=== PATIENT | female | born 1990 | race Caucasian/White ===

== ENCOUNTER → 2017-04-05 | Outpatient (CLI) | payer BC | END | disposition home or self-care (01) | LOC: C.PAPS 10:30 | PROVIDERS: ATTEND Obstetrics & Gynecology | DX: Z01.419 Encounter for gynecological examination (general) (routine) without abnormal findings (principal) ==

== ENCOUNTER → 2017-10-19 | Outpatient (CLI) | payer BC ==
[2017-10-19 11:27] LABS: URINE APPEARANCE CLEAR (CLEAR); URINE BILIRUBIN NEG (NEG); URINE COLOR YELLOW; URINE NITRITE NEG (NEG); URINE PH 8.5 (4.5-7.5); URINE SPECIFIC GRAVITY 1.004 (1.000-1.030); UROBILINOGEN NEG (NEG)
[2017-10-19 11:29] LABS: MANUAL MICROSCOPIC REQUIRED? NO; REVIEW REQ? NO
[2017-10-20 14:06] LABS: CHLAMYDIA TRACH RNA*** NOT DETECTED (NOT DETECTED); GC (NEIS GONORRHOEAE)RNA** NOT DETECTED (NOT DETECTED)
== END | disposition home or self-care (01) ==
LOC: C.LABSPEC 11:07
PROVIDERS: ATTEND Obstetrics & Gynecology
DX: Z34.90 Encounter for supervision of normal pregnancy, unspecified, unspecified trimester (principal)

== ENCOUNTER → 2017-10-19 | Outpatient (CLI) | payer BC ==
[2017-10-19 12:25] LABS: BASO % 0.7 %; BASO ABS # 0.06 K/uL (0-0.2); COMPLETE YES; EOS % 1.7 %; HEMATOCRIT 38.6 % (37-47); IG% 0.3 %; LYMPH % 27.6 %; LYMPH ABS # 2.38 K/uL (1.2-3.4); MEAN CELL VOLUME 85.6 fL (80-100); MEAN CORPUSCULAR HGB CONC 33.9 g/dl (32-36); MEAN PLATELET VOLUME 11.3 fL (7.4-10.4); MONO % 7.9 %; NEUT % 61.8 %; PLATELET COUNT 222 K/uL (130-400); RED BLOOD COUNT 4.51 M/uL (4.2-5.4); WHITE BLOOD COUNT 8.61 K/uL (4.8-10.8)
== END | disposition home or self-care (01) ==
LOC: C.LAB1850 10:05
PROVIDERS: ATTEND Obstetrics & Gynecology
DX: Z34.90 Encounter for supervision of normal pregnancy, unspecified, unspecified trimester (principal)

== ENCOUNTER → 2017-12-13 | Outpatient (CLI) | payer BC | END | disposition home or self-care (01) | LOC: C.LAB1850 09:25 | PROVIDERS: ATTEND Obstetrics & Gynecology | DX: O09.292 Supervision of pregnancy with other poor reproductive or obstetric history, second trimester (principal); Z3A.00 Weeks of gestation of pregnancy not specified ==

== ENCOUNTER → 2018-03-04 | Outpatient (CLI) | payer BC ==
[2018-03-04 10:06] LABS: HEMATOCRIT 35.1 % (37-47); HEMOGLOBIN 11.8 g/dL (12.0-16.0)
== END | disposition home or self-care (01) ==
LOC: C.LAB1850 08:45
PROVIDERS: ATTEND Obstetrics & Gynecology
DX: O09.293 Supervision of pregnancy with other poor reproductive or obstetric history, third trimester (principal); Z3A.00 Weeks of gestation of pregnancy not specified

== ENCOUNTER 2018-06-08 07:41 | Inpatient (IN) | payer BC ==
[~2018-06-08] VITALS: Ht 154.9 cm; Wt 83.0 kg
[~2018-06-08 07:41] MED LIST: CLR10 PO; DOCO200C2; PRENTAB26 PO
[2018-06-08] MEDS ORDERED: LACTATED RINGER'S 1000ML 500 ML IV PRN ×2 (07:51→12:39)
[2018-06-08] MEDS ORDERED: LACTATED RINGER'S 1000ML 1,000 ML IV PRN (07:51)
[2018-06-08] MEDS ORDERED: OXYTOCIN 30 UNITS/500ML NSS IV PRN (08:00)
[2018-06-08 08:22] LABS: HEMATOCRIT 39.7 % (37-47); HEMOGLOBIN 13.6 g/dL (12.0-16.0); MEAN CELL VOLUME 85.4 fL (80-100); MEAN CORPUSCULAR HEMOGLOBIN 29.2 pg (25-34); MEAN CORPUSCULAR HGB CONC 34.3 g/dl (32-36); MEAN PLATELET VOLUME 11.6 fL (7.4-10.4); PLATELET COUNT 218 K/uL (130-400); RED CELL DISTRIBUTION WIDTH CV 14.9 % (11.5-14.5); RED CELL DISTRIBUTION WIDTH SD 45.9 fL (36.4-46.3); WHITE BLOOD COUNT 13.68 K/uL (4.8-10.8)
[2018-06-08] MEDS: LACTATED RINGER'S 1000ML 1,000 ML IV SCH ×2 (08:44→18:12)
[2018-06-08] MEDS ORDERED: EpHEDrine SULFATE INJ 50 MG/ML AMP ONE (11:53)
[2018-06-08] MEDS ORDERED: BUPIVACAINE 0.25% 30 ML VIAL ONE (11:53)
[2018-06-08] MEDS ORDERED: FENTANYL CITRATE INJ 50 MCG/1 ML 2 ML VIAL ONE (11:53)
[2018-06-08] MEDS ORDERED: FENTANYL 2MCG/ML ROPIV 1.25MG/ML 100ML BAG ONE (11:54)
[2018-06-08] MEDS ORDERED: NALOXONE HCL INJ 1 MG in SODIUM CHLORIDE 0.9% 1000ML 1,000 ML IV PRN (12:39)
[2018-06-08] MEDS ORDERED: NALBUPHINE HCL INJ 10 MG/ML 10ML VIAL IV PRN (12:45)
[2018-06-08] MEDS ORDERED: EpHEDrine SULFATE INJ 50 MG/ML AMP IV PRN (12:45)
[2018-06-08] MEDS ORDERED: NALOXONE HCL INJ 0.4 MG/1 ML VIAL/CARP IV PRN (12:45)
[2018-06-08] MEDS ORDERED: DiphenhydrAMINE HCL 50 MG/ML VIAL IV PRN (12:45)
[2018-06-08] MEDS ORDERED: ONDANSETRON INJ 2 MG/ML 2 ML VIAL IV PRN (12:45)
[2018-06-08 14:28] VITALS: Ht 154.9 cm; Wt 83.0 kg
[2018-06-08] MEDS: FENTANYL 2MCG/ML ROPIV 1.25MG/ML 100ML BAG EPI PRN ×2 (19:03→19:40)
[2018-06-09] VITALS (16 sets, daily range): BP systolic 104–120; BP diastolic 66–79; PULSE 83–99; TEMP 36.7–37.3; O2SAT 95–100
[2018-06-09] MEDS: FENTANYL 2MCG/ML ROPIV 1.25MG/ML 100ML BAG EPI PRN (01:29)
[2018-06-09] MEDS ORDERED: LACTATED RINGER'S 1000ML 1,000 ML IV SCH ×2 (03:59→05:09)
[2018-06-09] MEDS ORDERED: CEFAZOLIN IV 2,000 MG in SYRINGE 0 ML IV SCH (04:00)
[2018-06-09] MEDS ORDERED: CITRIC ACID/SODIUM CITRATE 15 ML UDC PO ONE (04:00)
[2018-06-09] MEDS ORDERED: LIDOCAINE/EPINEPHRINE 2% 1:200,000 20 ML SDV ONE (04:13)
[2018-06-09] MEDS ORDERED: SODIUM BICARBONATE 8.4% INJ 50 MEQ/50 ML VIAL ONE (04:15)
[2018-06-09] MEDS ORDERED: OXYTOCIN INJ 10 UNITS/ML VIAL ONE (04:15)
[2018-06-09] MEDS ORDERED: CARBOPROST TROMETHAMINE 250 MCG/ML AMP ONE (04:22)
[2018-06-09] MEDS ORDERED: MoRPHine SULFATE PF 1 MG/ML 10 ML AMP/VIAL ONE (04:35)
[2018-06-09] MEDS ORDERED: PHENYLEPHRINE 100MCG/ML 5ML SYR ONE (04:37)
--- NOTE | 2018-06-09 05:07 | [facility] Post Operative Brief Note ---
Immediate Operative Summary Operative Date Jun 09, 2018. Pre-Operative Diagnosis 1) Post Dates 2) intolerance to labor Post-Operative Diagnosis same Procedure(s) Performed Primary LCT C/S Surgeon Espinoza Testing Machine Operator Surgeon(s) Heidi Estimated Blood Loss 800 Findings See Below viable female Apgars 7/9, gasses pending, nml appearing tunes and ovaries Fluids (cc crystalloids) 1000 Specimens 1) Placenta 2) Cord gasses Drains Beckman to gravity Anesthesia Type L&D Only EPID Exist Complication(s) none Disposition Accompanied Pt To Recover: yes Disposition: L&D
[2018-06-09] MEDS ORDERED: BENZOCAINE 20% AER SPR 82.5 GM CAN EXT PRN (05:15)
[2018-06-09] MEDS ORDERED: SUPERCREAM 0.870 % 15GM JAR EXT PRN (05:15)
[2018-06-09] MEDS ORDERED: DIPHTHERIA/TETANUS/PERTUSSIS 0.5 ML SYR/VIAL IM. ONE (05:15)
[2018-06-09] MEDS ORDERED: LANOLIN OINT EXT PRN (05:15)
[2018-06-09] MEDS ORDERED: HYDROCORTISONE ACETATE 25 MG SUPP PR PRN (05:15)
[2018-06-09] MEDS ORDERED: KETOROLAC TROMETHAMINE 30 MG/ML VIAL ONE (05:26)
[2018-06-09] MEDS ORDERED: MEPERIDINE HCL 25 MG/ML CARP IV PRN (05:30)
[2018-06-09] MEDS ORDERED: NO NARCOTICS OR SEDATIVES SCH (05:30)
[2018-06-09] MEDS ORDERED: MoRPHine SULFATE 2 MG/ML CARP IV PRN (05:30)
[2018-06-09] MEDS ORDERED: MoRPHine SULFATE PF 1 MG/ML 10 ML AMP/VIAL EPI PRN (05:30)
[2018-06-09] MEDS ORDERED: CONTINUE MEDICATION ONE (05:30)
--- NOTE | 2018-06-09 05:52 | Anesthesiology Progress Note ---
Anesthesia Post Op Note Date & Time Jun 09, 2018 at 05:52 Vital Signs Pain Intensity: 3.0 Notes Mental Status: alert / awake / arousable, participated in evaluation Pt Amnestic to Procedure: Yes Nausea / Vomiting: adequately controlled Pain: adequately controlled Airway Patency, RR, SpO2: stable & adequate BP & HR: stable & adequate Hydration State: stable & adequate Neuraxial Anesthesia: was administered, sensory block is resolving Anesthetic Complications: no major complications apparent
[2018-06-09] MEDS ORDERED: CEFAZOLIN IV 2,000 MG in DEXTROSE 5% 50ML 50 ML IV SCH (06:00)
[2018-06-09] MEDS: OXYTOCIN INJ 20 UNITS in LACTATED RINGER'S 1000ML 1,000 ML IV SCH ×2 (07:11→15:42)
--- NOTE | 2018-06-09 07:15 | OPERATIVE REPORT ---
DATE OF OPERATION: 06/09/2018 PREOPERATIVE DIAGNOSES: 1. Postdates . 2. intolerance for labor. POSTOPERATIVE DIAGNOSES: 1. Postdates . 2. intolerance for labor. PROCEDURE PERFORMED: Primary low cervical transverse section. SURGEON: Sarthak WAY MD WATER TAXI FERRY OPERATOR: Mago Gordon MD ANESTHESIA: Epidural. FINDINGS: Viable female with Apgars of 7 and 8. Meconium noted with double nuchal cord. Cord gases pending. Normal-appearing tubes and ovaries bilaterally. PROCEDURE IN DETAIL: The patient was taken to the operating room, and after epidural anesthesia, was placed in supine position and draped and prepped in usual fashion. Pfannenstiel type incision was made. Underlying subcutaneous tissue was dissected down to the ventral abdominal fascia, which was nicked and opened in a horizontal manner. Preperitoneal fascia was dissected away until the peritoneal cavity was entered and opened in a vertical manner. Bladder blade was placed. Peritoneum overlying the uterus was elevated, opened in a semi-lunar fashion, the inferior margin of which was taken down creating the bladder flap. The uterus was entered sharply and extended in a semilunar fashion manually. Viable female was delivered with meconium noted. Nuchal cord x2 reduced. Baby was delivered. Cord was clamped and cut. The baby was passed off to pediatrics who was in attendance for the delivery. Cord gases and cord blood samples obtained. Placenta was delivered spontaneously and sent for pathological evaluation. The uterus was exteriorized. The uterine cavity was wiped clean of any residual blood tissue and/or clot. The uterine incision was closed with 2 layers of 4-0 Vicryl, the first a running locking stitch, the second an imbricating stitch. Hemabate 250 mcg was injected directly into the myometrium for hemostasis. The uterus was returned to the pelvic cavity. The pericolic gutters were cleared bilaterally of any blood tissue and/or clot. The pelvis was thoroughly irrigated with 1000 mL of warm saline. Inspection of the incision showed hemostasis. Sponge and needle count was correct. Rectus muscle was plicated in the midline with a running 2-0 Vicryl stitch. The fascia was closed laterally with a running 0 Vicryl suture. The subcutaneous tissue was irrigated with warm saline and the skin incision was closed with a 4-0 Monocryl subcuticular stitch. Sterile dressing was applied. The patient was taken to the recovery room in satisfactory condition. I attest to the content of the Intraoperative Record and any orders documented therein. Any exception s are noted below.
[2018-06-09] MEDS: PRENATAL VITAMIN TAB PO SCH (08:00)
[2018-06-09] MEDS: FERROUS SULFATE 325 MG TAB PO SCH (08:00)
[2018-06-09] MEDS: KETOROLAC TROMETHAMINE 30 MG/ML VIAL IV. PRN ×2 (12:09→19:38)
[2018-06-09] MEDS ORDERED: LACTATED RINGER'S 1000ML 250 ML IV ONE (14:45)
[2018-06-09] MEDS ORDERED: NURSING VERBAL MED ORDER ONE ×2 (14:45→16:00)
[2018-06-09 14:47] LABS: HEMATOCRIT 35.5 % (37-47); HEMOGLOBIN 12.1 g/dL (12.0-16.0)
[2018-06-09] MEDS ORDERED: DC INTRASPINAL MORPHINE SCH (23:00)
[2018-06-09] MEDS ORDERED: DiphenhydrAMINE HCL 50 MG/ML VIAL IV PRN (23:00)
[2018-06-09] MEDS ORDERED: ONDANSETRON INJ 2 MG/ML 2 ML VIAL IV PRN (23:01)
[2018-06-09] MEDS ORDERED: OXYCODONE/ACETAMINOPHEN 5-325 TAB PO PRN ×2 (23:01)
[2018-06-09] MEDS ORDERED: KETOROLAC TROMETHAMINE 30 MG/ML VIAL IV. PRN (23:01)
[2018-06-09] MEDS ORDERED: OXYTOCIN INJ 20 UNITS in LACTATED RINGER'S 1000ML 1,000 ML IV SCH (23:30)
[2018-06-10 05:00] VITALS: BP 116/78; PULSE 89; TEMP 37; O2SAT 95
--- NOTE | 2018-06-10 07:20 | Progress Note ---
Subjective Jun 10, 2018. Subjective conversation w/ patient, conversation w/ family, physical exam, chart review, lab review Ambulation: limited ambulation Voiding: long catheter in place Passing Gas: Yes Diet Tolerance: Regular Diet Lochia: Small Feeding Type: Breast Feeding Problem List Medical Problems: (1) Headache in (2) Post term Review of Systems Constitutional: No fever, No chills Respiratory: No cough, No shortness of breath Cardiac: No chest pain Abdomen: No nausea, No vomiting Objective Vital Signs Date Time Temp Pulse Resp B/P (MAP) Pulse Ox O2 Delivery O2 Flow Rate FiO2 06/10/18 05:00 37.0 89 16 116/78 (91) 95 Room Air 06/09/18 23:20 36.9 83 16 104/70 (81) 95 Room Air 06/09/18 23:20 18 95 06/09/18 23:20 95 Room Air 06/09/18 22:15 18 98 06/09/18 21:10 18 97 06/09/18 21:10 37.1 96 18 110/71 (84) 97 Room Air 06/09/18 21:10 97 Room Air 06/09/18 20:15 18 99 06/09/18 19:15 18 99 06/09/18 17:00 18 100 06/09/18 15:47 36.9 93 16 119/79 (92) 100 Room Air 06/09/18 15:45 16 100 06/09/18 14:30 18 100 06/09/18 13:30 18 100 06/09/18 12:30 18 99 06/09/18 11:41 37.3 90 18 106/66 (79) 95 Room Air 06/09/18 11:41 18 95 06/09/18 10:45 18 96 06/09/18 09:45 37.1 99 16 120/79 (93) 100 Room Air 06/09/18 09:45 16 100 06/09/18 08:45 16 95 06/09/18 08:45 36.7 90 16 111/72 (85) 95 Room Air 06/09/18 07:45 16 95 06/09/18 07:45 95 Room Air 06/09/18 07:45 37.3 94 16 110/72 (85) 95 Room Air 06/09/18 07:45 95 Room Air Physical Exam General Appearance: WELL-APPEARING, WD/WN Respiratory/Chest: lungs clear, normal breath sounds, no respiratory distress, no accessory muscle use Cardiovascular: regular rate, rhythm, no gallop, no murmur Abdomen: normal bowel sounds Incision Description: Clean, Dry & Intact Laboratory Results Last 24 Hours Test 06/09/18 14:38 06/10/18 06:00 Hemoglobin 12.1 g/dL Hematocrit 35.5 % Medications Current Inpatient Medications Medications (Trade) Dose Ordered Sig/Torey Route Start Time Stop Time Status Last Admin Dose Admin Lactated Ringer's 1,000 ml @ 125 mls/hr Q8H IV 06/08/18 07:51 06/10/18 07:50 06/08/18 18:12 125 MLS/HR Oxytocin (Pitocin IV) 30 units UD PRN IV 06/08/18 08:00 07/08/18 07:59 06/08/18 08:56 30 UNITS Lactated Ringer's 1,000 ml @ 1,000 mls/hr Q1H IV 06/09/18 03:59 07/09/18 03:58 Ketorolac Tromethamine (Toradol Inj) 30 mg Q6H PRN IV. 06/09/18 23:01 06/14/18 23:00 06/10/18 02:08 30 MG Oxycodone/ Acetaminophen (Percocet 5-325mg Tab) 1 tab Q4H PRN PO 06/09/18 23:01 06/23/18 23:00 Oxycodone/ Acetaminophen (Percocet 5-325mg Tab) 2 tab Q4H PRN PO 06/09/18 23:01 06/23/18 23:00 Ibuprofen (Motrin Tab) 600 mg Q4H PRN PO 06/09/18 05:15 07/09/18 05:14 Ondansetron HCl (Zofran Inj) 4 mg Q4H PRN IV 06/09/18 23:01 07/09/18 23:00 Prenat Multivit/ [place]/Iron/Folic Ac ( Vitamin Tab) 1 tab DAILY PO 06/09/18 08:00 07/09/18 07:59 Magnesium Hydroxide (Milk Of Magnesia Susp) 30 ml HS PO 06/10/18 22:00 07/10/18 21:59 Ferrous Sulfate (Feosol Tab) 325 mg DAILY PO 06/09/18 08:00 07/09/18 07:59 Cocaine HCl (Supercream 0.870% Cr) BID PRN EXT 06/09/18 05:15 06/23/18 05:14 Lanolin (Lanolin Oint) PRN PRN EXT 06/09/18 05:15 07/09/18 05:14 Hydrocortisone Acetate (Anusol Hc Supp) 25 mg BID PRN [place] 06/09/18 05:15 07/09/18 05:14 Benzocaine (Dermoplast Aero Spr) 1 appln PRN PRN EXT 06/09/18 05:15 07/09/18 05:14 Diphenhydramine HCl (Benadryl Cap) 25 mg QID PRN PO 06/09/18 23:01 07/09/18 23:00 Diphenhydramine HCl (Benadryl Inj) 25 mg QID PRN IV 06/09/18 23:00 07/09/18 22:59 Senna (Senokot Tab) 17.2 mg HS PO 06/10/18 22:00 07/10/18 21:59 Oxytocin 20 units/ Lactated Ringer's 1,002 ml @ 125 mls/hr Q8H1M IV 06/09/18 23:30 06/10/18 07:30 06/10/18 00:06 125 MLS/HR Assessment and Plan Problem List Medical Problems: (1) Symptomatic PVCs Status: Acute Post-Op Day#: 1 Continue Routine Care: - Vital signs reviewed and within normal limits - Will D/C long today and advance diet as tolerated - Will monitor and manage pain with PRN Analgesics - Encourage ambulation, breast feeding - All questions and concerns addressed Resident Physician Supervision Note: I was present with Dr. Enriquez during the history and exam. I discussed the case with the resident and agree with the findings and plan as documented in the note. Any exceptions or clarifications are listed here: POD#1. Doing well. Continue routine postop care. Documented By: Ml Arango
[2018-06-10 08:00] VITALS: BP 117/79; PULSE 79; TEMP 37; O2SAT 96
[2018-06-10 08:02] LABS: BASO % 0.1 %; BASO ABS # 0.03 K/uL (0-0.2); EOS % 1.2 %; EOS ABS # 0.26 K/uL (0-0.5); HEMATOCRIT 32.9 % (37-47); HEMOGLOBIN 11.3 g/dL (12.0-16.0); LYMPH % 10.9 %; LYMPH ABS # 2.28 K/uL (1.2-3.4); MEAN CELL VOLUME 84.8 fL (80-100); MEAN CORPUSCULAR HEMOGLOBIN 29.1 pg (25-34); MEAN CORPUSCULAR HGB CONC 34.3 g/dl (32-36); MEAN PLATELET VOLUME 11.3 fL (7.4-10.4); MONO % 5.2 %; MONO ABS # 1.09 K/uL (0.11-0.59); NEUT % 82.1 %; PLATELET COUNT 170 K/uL (130-400); RED CELL DISTRIBUTION WIDTH CV 14.5 % (11.5-14.5); RED CELL DISTRIBUTION WIDTH SD 44.8 fL (36.4-46.3); WHITE BLOOD COUNT 20.86 K/uL (4.8-10.8)
[2018-06-10] MEDS: FERROUS SULFATE 325 MG TAB PO SCH (09:02)
[2018-06-10] MEDS: PRENATAL VITAMIN TAB PO SCH (09:02)
[2018-06-10] MEDS: IBUPROFEN 600 MG TAB PO PRN ×4 (09:03→23:45)
[2018-06-10 11:45] VITALS: BP 120/85; PULSE 84; TEMP 36.8; O2SAT 97
[2018-06-10 17:10] VITALS: BP 125/82; PULSE 87; TEMP 36.9; O2SAT 98
[2018-06-10] MEDS ORDERED: SENNA 8.6 MG TAB PO SCH (22:00)
[2018-06-10] MEDS ORDERED: MAGNESIUM HYDROXIDE SUSP 30 ML UDC PO SCH (22:00)
[2018-06-11 00:30] VITALS: BP 119/80; PULSE 80; TEMP 36.7; O2SAT 98
[2018-06-11] MEDS: IBUPROFEN 600 MG TAB PO PRN ×3 (03:22→11:21)
[2018-06-11] MEDS ORDERED: MTR600X PO (05:51)
[2018-06-11] MEDS ORDERED: OXYC-57 PO (05:51)
--- NOTE | 2018-06-11 06:03 | Discharge Instructions ---
Discharge Instructions Date of Service Jun 11, 2018. Admission Reason for Admission: Induction Discharge Discharge Diagnosis / Problem: section recovery Discharge Goals Goal(s): Routine recovery after Activity Recommendations Activity Limitations: per Instructions/Follow-up section . Instructions / Follow-Up Instructions / Follow-Up ACTIVITY RECOMMENDATIONS: * Gradual return to full activity over the next 2-3 weeks. * No lifting - nothing heavier than baby over the next 2-3 weeks. * Do not engage in vigorous exercise, sexual activity or sports until cleared by your physician. * Do not drive or operate any motorized equipment until cleared by your physician. * You may shower/bathe daily. MEDICATIONS: For discomfort or pain, you may use Acetaminophen (Tylenol), Ibuprofen (Advil), or Naproxen (Aleve) following the package directions. For constipation you may use Colace following the package directions. BREAST CARE: If you are not breast feeding: * Wear a supportive bra 24 hours a day for one to two weeks. * Avoid stimulating your breasts and nipples as much as possible during the first few weeks after delivery. * When taking a shower, have the warm water hit your back, not breasts. * When your breasts feel full, apply ice packs. Usually three to four times a day helps ease the discomfort. * Take a mild pain medication (Tylenol / Motrin) when you are uncomfortable. If breast feeding: * Use breast milk to lubricate nipples. Lansinoh cream may be used for sore nipples. You do not need to remove cream prior to breast feeding. If using a different brand of cream, check the label for directions regarding removal of cream prior to nursing. * Wear a supportive bra. * If having problems with breasts or breast feeding, call a career consultant or your health care provider. SPECIAL CARE INSTRUCTIONS: When you are discharged from the hospital, it is important for you to follow the instructions listed below: * During the first week at home, you should be able to care for yourself and your baby. In addition, the usual light household activities are encouraged. * Limit your activities to the way you feel. Do not try to clean the house or move furniture. Be sensible. * If you actively engage in sports and have done so up until the time of your delivery, you may resume these activities as soon as you feel able. This may take up to one month or even longer. Use good judgment. * Continue to take your vitamins for at least six weeks after the of your baby. * Your diet need not be limited unless you were on a special diet before your delivery. Breast-feeding mothers need around 2500 calories per day and at least 64-80 ounces of fluid per day (8 to 10 glasses). * You should eat foods from the four major food groups. Crash diets or fad diets are to be avoided. Eating lean meats, fresh fruits and vegetables, low-fat dairy products, high fiber foods and a regular exercise program, will help you get back to your pre- weight without putting your health at risk. * Constipation is sometimes a problem after delivery. Take a mild laxative as needed. If breast feeding, Milk of Magnesia is acceptable to use. You may use a suppository or Fleets enema. * A daily shower or tub bath is suggested. Wash incision daily with warm soapy water and pat dry. It doesn't need to be covered unless drainage is present. * A bloody vaginal discharge will usually continue until around four weeks . A small amount of bleeding may continue for as long as six weeks. Vaginal discharge changes from the bright red bleeding after delivery to pink then brownish and finally yellowish-pink before becoming white and disappearing. * Bleeding may increase with activity. Your first period may come in 4-8 weeks. If you are breast feeding, your period may be delayed even longer. * [place] (sex) can begin whenever both you and your partner feel comfortable and do not have any form of genital infection. It is recommended that you wait at least six weeks for internal and external healing to occur. If you have questions, please talk to your health care practitioner. A condom should be used to prevent infection and . * Foreplay, gentle intercourse and lubrication is very important the first several times to prevent pain. A water-based lubricant such as K-Y jelly or Astroglide may be used. * If you have RH negative blood and your baby is RH positive, you will receive RHOGAM by injection prior to discharge. The nurse will give you a card to keep with you that has the date and place that you received RHOGAM after delivery. * During your care, you had a Rubella screen done to check for the presence of rubella antibodies in your blood. If your test was negative, you will receive a Rubella vaccine prior to discharge. This vaccine may cause a fever, soreness at the injection site and flu-like symptoms. If these symptoms persist, notify your health care practitioner. is not advised for one month after a Rubella vaccine. * Verbalizes understanding of car seat law as reviewed with patient nursing. * Car Seat hand-out given and reviewed with patient by nursing. * Shaken baby information reviewed with patient by nursing. Call you doctor if: * Heavy bleeding (saturating several pads an hour) or passing clots the size of your fist. * A fever >101 degrees F (38.3 degrees C) on two occasions four hours apart and /or chills. * Unusual pain in the pelvic or vaginal areas. * Call the doctor for any increased redness, drainage or swelling around the incision and any pain unrelieved by prescribed pain medication. * "Baby Blues" lasting longer than two weeks. If you have any questions or concerns, call your health care practitioner at . FOLLOW UP VISIT: * Please call the office at to schedule a 6 week examination. It is important you keep this appointment. It is important for you to make arrangements for either yearly or twice yearly check-ups thereafter. Current Hospital Diet Patient's current hospital diet: Vegetarian Diet, Regular OB Diet Discharge Diet Recommended Diet: Regular OB Diet Procedures Procedures Performed: Primary LCT C/S Pending Studies Studies pending at discharge: no Medical Emergencies . Who to Call and When: Medical Emergencies: If at any time you feel your situation is an emergency, please call [phone] immediately. . Non-Emergent Contact Non-Emergency issues call your: Medical Technicians . . "Provider Documentation" section prepared by Isabelle Sauceda . [place] Drug Monitoring Program Search Results: no issues identified
[2018-06-11] MEDS ORDERED: DOCUSATE SODIUM 100 MG CAP PO ONE (06:45)
--- NOTE | 2018-06-11 06:54 | Progress Note ---
Subjective Jun 11, 2018. Subjective conversation w/ patient, conversation w/ family Ambulation: limited ambulation (long just D/C, pt will call nurse for assistance) Voiding: no voiding problems Passing Gas: Yes Diet Tolerance: Regular Diet Lochia: Small Feeding Type: Breast Feeding Problem List Medical Problems: (1) Headache in (2) Post term Review of Systems Constitutional: No fever Respiratory: No shortness of breath Cardiac: No chest pain Abdomen: No nausea, No vomiting Objective Vital Signs Date Time Temp Pulse Resp B/P (MAP) Pulse Ox O2 Delivery O2 Flow Rate FiO2 06/11/18 00:30 Room Air 06/11/18 00:30 36.7 80 18 119/80 (93) 98 Room Air 06/10/18 17:10 98 Room Air 06/10/18 17:10 36.9 87 20 125/82 (96) 98 Room Air 06/10/18 11:45 36.8 84 20 120/85 (97) 97 Room Air 06/10/18 08:00 96 Room Air 06/10/18 08:00 37.0 79 18 117/79 (92) 96 Room Air Physical Exam General Appearance: WELL-APPEARING, WD/WN Respiratory/Chest: no respiratory distress, no accessory muscle use Fundus: Firm, Non-Tender, Relation to Umbilicus (inferior to umbilicus) Incision Description: Clean, Dry & Intact Laboratory Results Last 24 Hours Test 06/10/18 07:42 06/11/18 06:00 White Blood Count 20.86 K/uL Red Blood Count 3.88 M/uL Hemoglobin 11.3 g/dL Hematocrit 32.9 % Mean Corpuscular Volume 84.8 fL Mean Corpuscular Hemoglobin 29.1 pg Mean Corpuscular Hemoglobin Concent 34.3 g/dl Platelet Count 170 K/uL Mean Platelet Volume 11.3 fL Neutrophils (%) (Auto) 82.1 % Lymphocytes (%) (Auto) 10.9 % Monocytes (%) (Auto) 5.2 % Eosinophils (%) (Auto) 1.2 % Basophils (%) (Auto) 0.1 % Neutrophils # (Auto) 17.10 K/uL Lymphocytes # (Auto) 2.28 K/uL Monocytes # (Auto) 1.09 K/uL Eosinophils # (Auto) 0.26 K/uL Basophils # (Auto) 0.03 K/uL RDW Standard Deviation 44.8 fL RDW Coefficient of Variation 14.5 % Immature Granulocyte % (Auto) 0.5 % Immature Granulocyte # (Auto) 0.10 K/uL Medications Current Inpatient Medications Medications (Trade) Dose Ordered Sig/[place] Route Start Time Stop Time Status Last Admin Dose Admin Oxytocin (Pitocin IV) 30 units UD PRN IV 06/08/18 08:00 07/08/18 07:59 06/08/18 08:56 30 UNITS Lactated Ringer's 1,000 ml @ 1,000 mls/hr Q1H IV 06/09/18 03:59 07/09/18 03:58 Ketorolac Tromethamine (Toradol Inj) 30 mg Q6H PRN IV. 06/09/18 23:01 06/14/18 23:00 06/10/18 02:08 30 MG Oxycodone/ Acetaminophen (Percocet 5-325mg Tab) 1 tab Q4H PRN PO 06/09/18 23:01 06/23/18 23:00 Oxycodone/ Acetaminophen (Percocet 5-325mg Tab) 2 tab Q4H PRN PO 06/09/18 23:01 06/23/18 23:00 Ibuprofen (Motrin Tab) 600 mg Q4H PRN PO 06/09/18 05:15 07/09/18 05:14 06/11/18 03:22 600 MG Ondansetron HCl (Zofran Inj) 4 mg Q4H PRN IV 06/09/18 23:01 07/09/18 23:00 Prenat Multivit/ [place]/Iron/Folic Ac ( Vitamin Tab) 1 tab DAILY PO 06/09/18 08:00 07/09/18 07:59 06/10/18 09:02 1 TAB Magnesium Hydroxide (Milk Of Magnesia Susp) 30 ml HS PO 06/10/18 22:00 07/10/18 21:59 06/10/18 21:54 30 ML Ferrous Sulfate (Feosol Tab) 325 mg DAILY PO 06/09/18 08:00 07/09/18 07:59 06/10/18 09:02 325 MG Cocaine HCl (Supercream 0.870% Cr) BID PRN EXT 06/09/18 05:15 06/23/18 05:14 Lanolin (Lanolin Oint) PRN PRN EXT 06/09/18 05:15 07/09/18 05:14 Hydrocortisone Acetate (Anusol Hc Supp) 25 mg BID PRN [place] 06/09/18 05:15 07/09/18 05:14 Benzocaine (Dermoplast Aero Spr) 1 appln PRN PRN EXT 06/09/18 05:15 07/09/18 05:14 Diphenhydramine HCl (Benadryl Cap) 25 mg QID PRN PO 06/09/18 23:01 07/09/18 23:00 Diphenhydramine HCl (Benadryl Inj) 25 mg QID PRN IV 06/09/18 23:00 07/09/18 22:59 Senna (Senokot Tab) 17.2 mg HS PO 06/10/18 22:00 07/10/18 21:59 Assessment and Plan Problem List Medical Problems: (1) Symptomatic PVCs Status: Acute Post-Op Day#: 2 Continue Routine Care: Resident Physician Supervision Note: I was present with Dr. Jonathan Enriquez during the history and exam. I discussed the case with the resident and agree with the findings and plan as documented in the note. Any exceptions or clarifications are listed here: [None] Documented By: Isabelle Morales - Vital signs reviewed and within normal limits - Encourage , ambulation - Will monitor and control pain with PRN analgesics - All questions and concerns addressed
[2018-06-11 07:17] LABS: HEMATOCRIT 29.4 % (37-47); HEMOGLOBIN 9.8 g/dL (12.0-16.0)
[2018-06-11 07:30] VITALS: BP 139/88; PULSE 68; TEMP 36.8; O2SAT 96
[2018-06-11] MEDS: FERROUS SULFATE 325 MG TAB PO SCH (07:43)
[2018-06-11] MEDS: PRENATAL VITAMIN TAB PO SCH (07:44)
[2018-06-11] MEDS ORDERED: FRRS300 PO (08:34)
[2018-06-11 12:05] VITALS: BP_DIAS 88; PULSE 68; TEMP 36.8
== END 2018-06-11 12:05 | disposition home or self-care (01) | DRG 766 ==
LOC: C.LD 07:41 → C.OBG 06-09 08:18
PROVIDERS: ADMIT Obstetrics & Gynecology; ATTEND Obstetrics & Gynecology
PROC: 3E033VJ Introduction of Other Hormone into Peripheral Vein, Percutaneous Approach (ICD-10-PCS; 2018-06-08)
PROC: 10907ZC Drainage of Amniotic Fluid, Therapeutic from Products of Conception, Via Natural or Artificial Opening (ICD-10-PCS; 2018-06-08)
PROC: 10D00Z1 Extraction of Products of Conception, Low, Open Approach (ICD-10-PCS; principal; 2018-06-09 04:30)
DX: O76 Abnormality in fetal heart rate and rhythm complicating labor and delivery (principal); O77.0 Labor and delivery complicated by meconium in amniotic fluid; O69.81X0 Labor and delivery complicated by cord around neck, without compression, not applicable or unspecified; O48.0 Post-term pregnancy; Z3A.41 41 weeks gestation of pregnancy; Z37.0 Single live birth

== ENCOUNTER 2021-03-17 07:03 | Inpatient (IN) ==
--- NOTE | 2021-02-28 13:27 | Anesthesiology Consultation ---
Date of Service February 28, 2021 Assessment & Plan (1) Encounter for pre-operative examination: Chart Review Chart Review: charge entry clerk initiated Per nursing assessment February 28, 2021, patient denies any recent travel. No known Covid infection in the past 90 days. Patient did have recent head coldwas Covid tested twice and tested negative both times. Patient was tested at [facility] in [place]. Patient denies any current upper respiratory infection symptoms. Patient scheduled for preop Covid testing March 11, 2021 = will await results. History Surgery Operation Date: 03/17/21 08:50 Proposed Procedures p Section in LD - Isabelle Ireland MD, FACOG Height/Weight Height: 5 ft 1 in Weight: 87.09 kg Allergies Allergy/AdvReac Type Severity Reaction Status Date / Time No Known Allergies Allergy Verified 02/28/21 12:20 Medications Home Medications Medication Instructions Recorded Confirmed Last Taken prenat.vits,karissa,[id number] 1 tab PO DAILY 08/06/20 02/28/21 Unknown calcium carbonate [Tums] 200 mg PO BID PRN 02/28/21 02/28/21 Unknown Past Medical History Medical History Acid reflux Anxiety History of anesthesia reaction reports vomiting, pruritus with previous History of asthma as a child History of cardiac murmur as a child History of migraine History of palpitations did see Dr. Delgadillo 10/2020 - holter monitor study, echo, ekg --> tachycardia, rare PAC, rare PVC - no issues since Past Family History Family History Mother Hypercholesterolemia Hypertension Father Hypercholesterolemia Hypertension Grandfather (Paternal) Colon cancer Other No family history of adverse response to anesthesia Past Surgical History Surgical History History of myringotomy S/P section S/P dilation and curettage Social History Smoking Status: Former smoker Do You Dip or Chew Tobacco: No Smoking End Date: quit 5 years ago Hx Alcohol Use: No Hx Substance Use: No substance use type: does not use Testing Electrocardiogram Date: 10/06/20 Findings: + ST @ (107 bpm) RSR' or QR pattern in V1 suggest RV conduction delay. Otherwise normal EKG. Echocardiogram Date: 10/14/20 EF: 65% LV Function: normal RWMA: + none Other Findings: no LVH Valvular Disease: + no significant valvular disease Normal pulmonary pressures. When compared to echocardiogram from 04/21/2018, there is no significant change. Other Testing Holter monitor 10/14/2020 = basic rhythm was normal sinus rhythm with sinus arrhythmia. Very rare isolated PVCs. Rare PACs. No pauses greater than 3 seconds or evidence of an AV block. Symptoms included fluttering and skipped beats. The symptoms were without EKG changes with the exception of one PVC and one episode of sinus arrhythmia.
--- NOTE | 2021-03-14 17:53 | History & Physical Report ---
Date of Service March 14, 2021 Assessment & Plan (1) Previous delivery affecting , antepartum: Admission and Anticipated Discharge Date Admission Date: IUP at 39 weeks for repeat C/S on 03/17 21 with recent HSV recurrent infection now resolved on po valtrex. the procedure and it's risks are reviewed with the patient and her and all questions answered to their satisfaction. will make peds aware , should not be an issue as repeat C/S is planned and not going to be a vaginal . History of Present Illness Primary Care Provider: Jocelyne castellanos is a 30 yo white female who presents at 39 weeks for repeat C/S. Prior section was done for intolerance of labor. This was complicated by heart palpitations but workup revealed no abnormalities. 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 she has been on valtrex since the swab was done and now feels it has completely resolved. she still has 5 more days of valtrex to take. She had a similar lesion several years ago that was diagnosed as folliculitis in the exact same spot but was not cultured for HSV at that time. GBS negative A positive Allergies Allergy/AdvReac Type Severity Reaction Status Date / Time No Known Allergies Allergy Verified 03/14/21 09:31 Home Medications Medication Instructions Recorded Confirmed Type prenat.vits,karissa,[id number] 1 tab PO DAILY 08/06/20 03/14/21 History calcium carbonate [Tums] 200 mg PO BID PRN 02/28/21 03/14/21 History valacyclovir 500 mg tablet 500 mg PO BID #20 tab 03/10/21 03/14/21 Rx Patient History Medical History Acid reflux Anxiety History of anesthesia reaction reports vomiting, pruritus with previous History of asthma as a child History of cardiac murmur as a child History of migraine History of palpitations did see Dr. Delgadillo 10/2020 - holter monitor study, echo, ekg --> tachycardia, rare PAC, rare PVC - no issues since Surgical History History of myringotomy S/P section S/P dilation and curettage Family History Mother Hypercholesterolemia Hypertension Father Hypercholesterolemia Hypertension Grandfather (Paternal) Colon cancer Other No family history of adverse response to anesthesia Social History Smoking Status: Former smoker Age Quit Using Tobacco: 26; Number of Years Since Quit: 3; Second Hand Exposure: No; Hx Alcohol Use: No Hx Substance Use: No Preferred Language: Frisian Communication Ability: Effective Paste Up Artist Required: No Beliefs That Will Affect Care: None marital status: Current Living Situation: Spouse Current Living Situation Comment: living with spouse and daughter, 1 cat, 1 dog, spouse to change litter. current occupational status: employed current occupation: Administration. Feels Safe at Home: Yes Assistive Devices: Contacts and Glasses Review of Systems All systems reviewed & are unremarkable except as noted in HPI & below Physical Exam Constitutional: WD/WN, vitals as above Respiratory: normal respiratory effort, lungs clear to auscultation Cardiovascular: RRR, no murmur, no edema Gastrointestinal (Abdomen): normal bowel sounds, soft, nontender, no hepatosplenomegaly Inspection/Auscultation: + abdominal surgical scar (low transverse- well healed) Psychiatric: A+Ox3, euthymic affect Genitourinary: OB Exam Abdomen: + fundal height (37 cm), + heart tones (155) and + vertex cervix exam declined Coding Level of Care Code None Diagnoses Previous delivery affecting , antepartum O34.219
[~2021-03-17 07:03] MED LIST changes: +CITRIC ACID/SODIUM CITRATE 15 ML UDC PO SCH; -CLR10 PO; -DOCO200C2; -PRENTAB26 PO; +ceFAZolin 2000MG 2,000 MG/15 ML SYR IV SCH
--- NOTE | 2021-03-17 07:40 | History & Physical Bridge Note ---
Date of Service March 17, 2021 History & Physical Bridge Note I have examined the patient, reviewed the History & Physical and in the interval since the performance of the History & Physical I have noted the following changes of clinical significance: no changes noted
[2021-03-17] MEDS ORDERED: LACTATED RINGER'S 1,000 ML IV SCH ×2 (07:45→08:34)
[2021-03-17 07:52] LABS: Basophils # (auto) 0.04 K/uL (0-0.2); Basophils % (auto) 0.4 %; Eosinophils % (auto) 1.1 %; Hematocrit (blood only) 32.7 % (37-47); Hemoglobin 10.5 g/dL (12.0-16.0); Immature Granulocytes # (auto) 0.07 K/uL (0.00-0.02); Immature Granulocytes % (auto) 0.8 %; Lymphocytes # (auto) 2.18 K/uL (1.2-3.4); Lymphocytes % (auto) 24.3 %; Mean Corpuscular Hemoglobin 25.1 pg (25-34); Mean Corpuscular Hgb Conc 32.1 g/dL (32-36); Mean Platelet Volume 10.7 fL (7.4-10.4); Monocytes # (auto) 0.73 K/uL (0.11-0.59); Monocytes % (auto) 8.1 %; Neutrophils # (auto) 5.85 K/uL (1.4-6.5); Neutrophils % (auto) 65.3 %; Platelet Count 239 K/uL (130-400); RDW Coefficient of Variation 14.7 % (11.5-14.5); RDW Standard Deviation 41.8 fL (36.4-46.3); Red Blood Count 4.19 M/uL (4.2-5.4); White Blood Count 8.97 K/uL (4.8-10.8)
[2021-03-17] MEDS ORDERED: valACYclovir HCL 500 MG TABLET PO SCH (09:00)
[2021-03-17] MEDS ORDERED: LACTATED RINGER'S 500 ML IV PRN (09:21)
[2021-03-17] MEDS ORDERED: PROMETHAZINE HCL 25 MG in SODIUM CHLORIDE 0.9% 50 ML IV PRN (09:21)
[2021-03-17] MEDS ORDERED: NALOXONE HCL 1 MG in SODIUM CHLORIDE 0.9% 1000ML 1,000 ML IV PRN (09:21)
[2021-03-17] MEDS ORDERED: ePHEDrine sulfate 50 MG/ML AMP IV PRN (09:21)
[2021-03-17] MEDS ORDERED: ONDANSETRON INJ 2 MG/ML 2 ML VIAL IV PRN (09:21)
[2021-03-17] MEDS ORDERED: NALOXONE HCL 0.08 MG in SYRINGE 1.8 ML IV PRN (09:21)
[2021-03-17] MEDS ORDERED: NALOXONE HCL 0.4 MG/1 ML VIAL/CARP IV PRN (09:21)
[2021-03-17] MEDS ORDERED: diphenhydrAMINE 50 MG/ML VIAL IV PRN (09:21)
[2021-03-17] MEDS ORDERED: MoRPHine SULFATE PF 1 MG/ML 10 ML AMP/VIAL INT SPINAL ONE (09:21)
[2021-03-17] MEDS ORDERED: OXYTOCIN 10 UNITS/ML VIAL ONE (09:27)
[2021-03-17] MEDS ORDERED: MoRPHine SULFATE PF 1 MG/ML 10 ML AMP/VIAL ONE (09:28)
[2021-03-17] MEDS ORDERED: fentaNYL citrate 100 MCG/2 ML VIAL ONE (09:28)
[2021-03-17] MEDS ORDERED: SODIUM CHLORIDE 0.9% 1000ML 1,000 ML IV SCH (09:30)
[2021-03-17] MEDS ORDERED: NO NARCOTICS OR SEDATIVES SCH (09:30)
[2021-03-17] MEDS ORDERED: DC INTRASPINAL MORPHINE SCH (09:30)
[2021-03-17] MEDS ORDERED: ePHEDrine sulfate 50 MG/ML SYR ONE (10:56)
[2021-03-17] MEDS ORDERED: PHENYLEPHRINE 100MCG/ML 5ML SYR ONE (10:56)
[2021-03-17] MEDS ORDERED: ONDANSETRON INJ 2 MG/ML 2 ML VIAL ONE (11:10)
--- NOTE | 2021-03-17 11:57 | Post Operative Brief Note ---
PG Immediate Post Op with CF Date of Surgery March 17, 2021 Pre & Post Diagnosis Operation Date: 03/17/21 08:50 Pre-Op Diagnosis: 1. Prior Section 2. Desires Repeat Post-Op Diagnosis: Same I identified the patient and participated in the time-out.: Yes Procedure Operation Date: 03/17/21 08:50 Actual Procedures p Section in LD; Rpeat lower uterine transverse section for the of a live girl at 1102(Bilateral) - Isabelle Ireland MD, FACOG Surgeon Isabelle Ireland MD, FACOG Distance Learning Program Coordinator Jose Chavez MD Estimated Blood Loss 600 Findings Consistent with Post-Op Diagnosis Specimens Specimen Description: 1. Placenta: Hold 2. Cord blood obtained Drains Beckman Catheter
--- NOTE | 2021-03-17 13:43 | Anesthesiology Progress Note ---
Date of Service March 17, 2021 Anesthesia Post Procedure Vital Signs Vital Signs: Temp Pulse Resp BP Pulse Ox 03/17/21 13:40 99 H 98 03/17/21 13:39 106 H 134/77 03/17/21 13:35 95 H 98 03/17/21 13:30 98 H 97 03/17/21 13:29 94 H 126/81 03/17/21 13:25 95 H 98 03/17/21 13:20 93 H 134/85 98 03/17/21 13:15 101 H 98 03/17/21 13:10 102 H 20 98 03/17/21 13:09 100 H 135/72 03/17/21 13:05 95 H 98 03/17/21 13:00 92 H 20 99 03/17/21 12:59 96 H 137/68 03/17/21 12:55 96 H 98 03/17/21 12:50 101 H 20 98 03/17/21 12:49 102 H 147/75 H 03/17/21 12:45 116 H 98 03/17/21 12:40 95 H 20 99 03/17/21 12:39 96 H 140/81 03/17/21 12:35 89 100 03/17/21 12:30 82 20 100 03/17/21 12:29 78 132/81 03/17/21 12:25 79 100 03/17/21 12:20 84 20 100 03/17/21 12:19 85 128/84 03/17/21 12:15 84 100 03/17/21 12:10 36.7 C 80 20 98 03/17/21 12:08 81 123/76 03/17/21 07:39 36.7 C 20 03/17/21 07:21 95 H 131/79 Pain Intensity Lower Abdomen: Pain Intensity: 3 Transfer of Care Handoff Completed per policy Notes Mental Status: alert / awake / arousable and participated in evaluation Patient Amnestic to Procedure: Yes Nausea / Vomiting: adequately controlled Pain: adequately controlled Airway Patency, RR, SpO2: stable & adequate BP & HR: stable & adequate Hydration State: stable & adequate Anesthetic Complications: no major complications apparent and Pt Satisfied with anesthetic care
[2021-03-17] MEDS: OXYTOCIN 20 UNITS in LACTATED RINGER'S 1,000 ML IV SCH ×2 (14:12→21:51)
--- NOTE | 2021-03-17 16:11 | Operative Report ---
PG Post Operative Report Pre & Post Diagnosis Operation Date: 03/17/21 08:50 Pre-Op Diagnosis: 1. Prior Section 2. Desires Repeat Post-Op Diagnosis: Same plus delivery of a viable female infant 8 lbs 9 ozs. Apgars 8&9. I identified the patient and participated in the time-out.: Yes Procedure Operation Date: 03/17/21 08:50 Actual Procedures p Section in LD; Rpeat lower uterine transverse section for the of a live girl infant at 1102(Bilateral) - Isabelle Ireland MD, FACOG Surgeon Isabelle Ireland MD, FACOG Cryptologic Support Specialist Jose Chavez MD Estimated Blood Loss 600 Findings Consistent with Post-Op Diagnosis uterus gravid and consistent with a full term . uterus was dextro- rotated upon entering the abdomen.omental adhesion to right side of uterus was noted. bilateral ovaries and tubes are grossly normal. Specimens Placenta to hold Drains Beckman to straight drainage- clear urine at end of the case. Anesthesia Type Spinal Complications none Disposition Accompanied Patient To Recovery: Yes Disposition: L&D Indications The patient is a 30-year-old 3 para 1-0-1-1 white female who presents at 39 weeks for repeat section. Prior section was done because of failure to progress at full dilation, as well as nonreassuring heart rate pattern. Patient is requesting repeat section. She understands the procedure and its risks and she is willing to proceed after all her questions were answered to her satisfaction. Description of Procedure After the patient received adequate subarachnoid block she was prepped and draped in usual sterile fashion. A Beckman catheter had been placed prior to the prep and drape. This was done using sterile technique. A low transverse skin incision was made through her prior scar, and carried to the fascia with the same scalpel. The scalpel was then used to extend the incision in the fascia. The edges were then grasped with Nixon clamps and the underlying rectus muscles were bluntly and sharply dissected off of the overlying fascia. The rectus muscles were divided on the midline bluntly and the peritoneum was also entered bluntly. The rectus muscles were then divided inferiorly with Metzenbaum scissors after identifying the plane between the bladder and rectus muscles. The bladder blade was then placed in the abdominal cavity. Uterus was then corrected so that the anterior wall of the uterus was now presenting in the abdominal incision. The bladder was then taken down off the anterior surface of the uterus and placed beside behind the bladder blade. The lower uterus then was then entered with a scalpel and was extended bluntly. Membranes were ruptured for thin meconium stained fluid. With moderate fundal pressure and the assistance of the vacuum the vertex was delivered through the incision. The rest of the delivered easily. The cord was then clamped and cut. The was vigorous and moving all 4 limbs on delivery. The female was handed off to the wedding makeup artist who was in attendance at the delivery. The placenta was then manually removed and the uterus exteriorized and covered with a clean lap sponge. The uterine cavity was then explored and found to be free of any retained tissue or placenta. Bleeding in the area of the left uterine vessels was secured with a T clamp. The uterus was then closed in 2 layers in a running locking imbricating fashion with 0 Monocryl suture. The omental adhesion had been taken down prior to entering the uterus. This was done with the Bovie. Hemostasis noted be excellent at the uterine incision. The posterior cul-de-sac was suctioned for small amount of bloody fluid. The incision was examined once more continue to have excellent hemostasis. The uterus was then placed back in the abdominal cavity and examined once more. Bleeding along the bladder flap was noted and controlled with the Bovie. The gutters were explored and found to be free of any clot or fluid. The rectus muscle were then brought together in the midline with individual stitches of 0 Monocryl. The fascia was then closed in a running fashion with 0 Vicryl. There was some bleeding in the adipose layer, and this was controlled with the Bovie. After irrigating the subcutaneous layer, hemostasis was then found to be satisfactory. The skin edges were reapproximated using a subcuticular stitch of 4-0 Vicryl. Mother and infant were doing well after the section. And was stable upon arrival in labor and delivery for care. I attest to the content of the Intraoperative Record and any orders documented therein. Any exceptions are noted below.
[2021-03-17] MEDS ORDERED: ACETAMINOPHEN 1,000 MG/100 ML VIAL IV PRN (17:42)
[2021-03-17] MEDS: MoRPHine SULFATE 2 MG/ML CARP IV PRN ×2 (20:26→23:52)
[2021-03-18] MEDS: MoRPHine SULFATE 2 MG/ML CARP IV PRN (02:38)
[2021-03-18] MEDS ORDERED: PROMETHAZINE HCL 25 MG in SODIUM CHLORIDE 0.9% 50 ML IV PRN (04:10)
[2021-03-18] MEDS ORDERED: diphenhydrAMINE Capsule 25 MG CAP PO PRN (04:10)
[2021-03-18] MEDS ORDERED: diphenhydrAMINE 50 MG/ML VIAL IV PRN (04:10)
[2021-03-18] MEDS ORDERED: ONDANSETRON INJ 2 MG/ML 2 ML VIAL IV PRN (04:10)
[2021-03-18] MEDS ORDERED: SENNA 8.6 MG TAB PO PRN (04:10)
[2021-03-18] MEDS ORDERED: KETOROLAC 30 MG/ML VIAL IV PRN (04:10)
[2021-03-18] MEDS ORDERED: MAGNESIUM HYDROXIDE SUSP 30 ML UDC PO PRN (04:10)
[2021-03-18] MEDS ORDERED: MEPERIDINE HCL 50 MG/ML CARP IV PRN (04:10)
[2021-03-18] MEDS ORDERED: CITRIC ACID/SODIUM CITRATE 15 ML UDC PO SCH (06:00)
[2021-03-18] MEDS: oxyCODONE/ACETAMINOPHEN 5mg/325mg TAB PO PRN ×4 (06:52→20:02)
--- NOTE | 2021-03-18 06:53 | Obstetrical Progress Note ---
Date of Service <Jose Noland MD - Last Filed: 03/18/21 07:44> March 18, 2021 Assessment & Plan <Jose Noland MD - Last Filed: 03/18/21 07:44> (1) Previous delivery affecting , antepartum: A/P: Charissa Carvajal is a 30yo female on POD#1 s/p delivery at 39wga. * VSS * Patient feels well today; eating well, voiding well, ambulating well * Pain well-controlled with oxycodone/acetaminophen 1-2 tabs q4h prn * PNL: Rh pos, RI, GBS neg, COVID neg * Routine post- care: OOB, ambulation, diet progression as tolerated * After discharge, will have six-week follow-up with Dr. Jyoti Moses <Jose Noland MD - Last Filed: 03/18/21 07:44> Charissa Carvajal is a 30yo female on POD#1 s/p delivery at 3 9wga. This morning she reports feeling well overall. Reports moderate crampy abdominal pain well-managed on analgesics; did require IV morphine overnight. Tolerating PO intake without nausea or vomiting. Patient has been able to ambulate without lightheadedness or dizziness. Lochia continues, though with some improvement this morning. Beckman catheter has been removed and patient is voiding without difficulty. Currently . Review of Systems Denies fever, chills, CP, SOB, cough, breast pain, dysuria, leg pain, leg swelling, headache, and changes in vision. Physical Exam <Jose Noland MD - Last Filed: 03/18/21 07:44> Gen: awake, alert, oriented, laying in bed comfortably Cardiac: regular rhythm, no murmurs appreciated Resp: lungs CTABL, good respiratory effort, no increased WOB, no wheezes/r ales/rhonchi Abd: normal gravid abdomen, soft, mildly tender, BS present, incision C/D/I : uterine fundus firm, palpable below umbilicus LE: no lower extremity edema or swelling, no deep calf pain, Ewa's negative bilaterally Results & Data ([facility]) <Jose Noland MD - Last Filed: 03/18/21 07:44> Vital Signs (Past 12 Hours) Vital Signs Temp Pulse Pulse Resp BP BP Pulse Ox 03/18/21 03:30 36.2 C L 93 H 18 122/80 97 03/18/21 03:20 18 100 03/18/21 03:03 20 100 03/18/21 01:58 16 96 03/18/21 01:00 16 97 03/18/21 00:00 37.4 C 111 H 16 123/78 97 03/17/21 23:40 36.2 C L 93 H 16 122/80 97 03/17/21 23:00 16 98 03/17/21 22:00 18 99 03/17/21 21:02 18 100 03/17/21 20:05 18 98 03/17/21 19:05 37.2 C 98 H 18 135/81 98 <Isabelle Ireland MD, FACOG - Last Filed: 03/18/21 08:21> Co-Signing Physician Notes Resident Physician Supervision Note: I interviewed and examined the patient. Discussed with Dr. Noland and agree with findings and plan as documented in the note. Any exceptions or clar ifications are listed here: [None] Documented By: Isabelle Ireland MD, FACOG Resident Activity Tracking <Jose Noland MD - Last Filed: 03/18/21 07:44> Resident Involvement: Resident Care Provided Care Provided: OB Delivery
[2021-03-18] MEDS: SIMETHICONE 80 MG CHEW PO SCH ×4 (08:34→20:08)
[2021-03-18] MEDS: PRENATAL VITAMIN 1 TAB PO SCH (08:34)
[2021-03-18] MEDS: DOCUSATE SODIUM 100 MG CAP PO SCH ×2 (08:34→20:08)
[2021-03-18] MEDS ORDERED: valACYclovir HCL 500 MG TABLET PO SCH (09:00)
[2021-03-18] MEDS: IBUPROFEN 600 MG TAB PO PRN ×3 (09:57→20:03)
[2021-03-18 16:52] LABS: Hematocrit (blood only) 27.1 % (37-47); Hemoglobin 8.8 g/dL (12.0-16.0)
[2021-03-19] MEDS: ACETAMINOPHEN 325 MG TAB PO PRN ×3 (01:40→12:30)
[2021-03-19] MEDS: IBUPROFEN 600 MG TAB PO PRN ×3 (01:41→12:30)
--- NOTE | 2021-03-19 07:22 | Obstetrical Progress Note ---
Date of Service <Jose Noland MD - Last Filed: 03/19/21 07:22> March 19, 2021 Assessment & Plan <Jose Noland MD - Last Filed: 03/19/21 07:22> (1) Previous delivery affecting , antepartum: A/P: Charissa Carvajal is a 30yo female on POD#2 s/p delivery at 39wga. * VSS * Patient feels well today; eating well, voiding well, ambulating well * Pain well-controlled with oxycodone/acetaminophen 1 tab q4h prn and ibuprofen 600mg q6h prn * PNL: Rh pos, RI, GBS neg, COVID neg * Routine post- care: OOB, ambulation, diet progression as tolerated * After discharge, will have six-week follow-up with Dr. Montes Subjective <Jose Noland MD - Last Filed: 03/19/21 07:22> Charissa Carvajal is a 30yo female on POD#2 s/p delivery at 39wga. This morning she reports feeling well overall. Reports moderate crampy abdominal pain well-managed on analgesics. Tolerating PO intake without nausea or vomiting. Patient has been able to ambulate without lightheadedness or dizziness. Lochia continues, though with some improvement this morning. Beckman catheter has been removed and patient is voiding without difficulty. Currently . Denies fever, chills, CP, SOB, cough, breast pain, dysuria, leg pain, leg swelling, headache, and changes in vision. Physical Exam <Jose Noland MD - Last Filed: 03/19/21 07:22> Gen: awake, alert, oriented, laying in bed comfortably Cardiac: regular rhythm, no murmurs appreciated Resp: lungs CTABL, good respiratory effort, no increased WOB, no wheezes/rales/rhonchi Abd: normal gravid abdomen, soft, mildly tender, BS present, incision C/D/I : uterine fundus firm, palpable below umbilicus LE: no lower extremity edema or swelling, no deep calf pain, Ewa's negative bilaterally Results & Data ([facility]) <Jose Noland MD - Last Filed: 03/19/21 07:22> Vital Signs (Past 12 Hours) Vital Signs Temp Pulse Resp BP 03/18/21 23:30 36.8 C 85 18 134/80 03/18/21 19:50 37.1 C 97 H 18 140/82 <Sathya Gutierrez MD - Last Filed: 03/20/21 08:25> Co-Signing Physician Notes Patient seen and evaluated and agree with the above findings and plan. Routine OB care. Stable for discharge Resident Activity Tracking <Jose Noland MD - Last Filed: 03/19/21 07:22> Resident Involvement: Resident Care Provided Care Provided: OB Delivery
[2021-03-19] MEDS: DOCUSATE SODIUM 100 MG CAP PO SCH (08:30)
[2021-03-19] MEDS: PRENATAL VITAMIN 1 TAB PO SCH (08:30)
[2021-03-19] MEDS: SIMETHICONE 80 MG CHEW PO SCH ×2 (08:30→12:29)
[2021-03-19] MEDS ORDERED: bisacodyL 5 MG TABEC PO SCH (20:00)
--- NOTE | 2021-03-25 00:14 | Discharge Summary (DS) ---
PRINCIPAL DIAGNOSIS: Intrauterine at term, prior section, requesting repeat section. PRINCIPAL PROCEDURE: Repeat low transverse section. BRIEF HISTORY: The patient is a 30-year-old 3, para 1-0-1-1 white female who presented at 39 weeks for repeat section. This repeat section was done without complications. The patient remained afebrile throughout her hospital course. She was eating regular diet, ambulating and voiding without difficulty on her 1st postop day. Pain was well controlled with oral pain medications as well. She was sent home in good condition. Hemoglobin on admission was 10.5, hematocrit of 32.7. First postop day hemoglobin 8.8, hematocrit 27.1. She was sent home with scripts for Percocet 1 tablet p.o. q. 6 hours p.r.n. pain, ibuprofen 600 mg p.o. q. 6 hours p.r.n. pain. She is to call for temperature of 101 degrees or higher, heavy vaginal bleeding, burning with urination, increased redness, drainage or pain from her incision, calf tenderness, shortness of breath or any other concerns. She will be seen in the office in 6 weeks for followup visit.
--- NOTE | 2021-03-28 12:30 | Coding Query ---
CODING QUERY To promote full compliance with coding requirements relating to patient care, provider participation is requested in all cases of hand zipper trimmer uncertainty. 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 she has been on valtrex since the swab was done and now feels it has completely resolved. she still has 5 more days of valtrex to take. She had a similar lesion several years ago that was diagnosed as folliculitis in the exact same spot but was not cultured for HSV at that time". Please specify below, in your clinical opinion, regarding Herpes Simplex Virus. (X ) /Childbirth complicated by Herpes Simplex Virus - treated and/or monitored during admission ( ) History only of Herpes Simplex Virus ( ) Other: Please Specify Physician's Response(s): Thank you Frida Samson Principal Diagnosis: "that condition established after study, to be chiefly responsible for occasioning the admission of the patient to the hospital for care." Co-Existing Principal Diagnosis: "when two or more diagnoses equally meet the criteria for principal diagnosis as determined by the circumstances of admission, diagnostic work up, and/or therapy provided, and the Alphabetic Index, Tabular List, or another coding guideline does not provide sequencing direction, any one of the diagnoses may be sequenced first." "When the physician has documented what appears to be a current diagnosis in the body of the record, but has not included the diagnosis in the final diagnostic statement, the physician should be asked whether the diagnosis should be added." ([facility] 2 QTR90. p3-4) [facility]
== END 2021-03-19 13:55 | disposition home or self-care (01) | DRG 787 ==
LOC: 4S1 07:03 → EDSTATUS 08:50 → 4S2 17:20
DX: Z20.822 Contact with and (suspected) exposure to COVID-19; Z37.0 Single live birth; Z3A.39 39 weeks gestation of pregnancy; O98.52 Other viral diseases complicating childbirth; O77.0 Labor and delivery complicated by meconium in amniotic fluid; Z87.891 Personal history of nicotine dependence; O34.211 Maternal care for low transverse scar from previous cesarean delivery; B00.9 Herpesviral infection, unspecified; Z79.899 Other long term (current) drug therapy